=== PATIENT | male | born 1965 | race Caucasian/White ===

== ENCOUNTER 2025-02-20 11:34 | Emergency (ER) | payer BC ==
[2025-02-20 11:53] LABS: BLOOD UREA NITROGEN,BUN 23 mg/dL (7-18); CARBON DIOXIDE,CO2 25 mmol/L (21-32); CHLORIDE,CL 102 mmol/L (100-110); CREATININE 1.2 mg/dL (0.70-1.30); ESTIMATED GFR 69 mL/min (>60); GLUCOSE RANDOM 135 mg/dL (80-116); MEAN PLATELET VOLUME 8.1 fL (6.7-11.0); PLATELET COUNT,PLT 296 x10(3)uL (117-477); POTASSIUM,K 3.1 mmol/L (3.5-5.3); RED BLOOD CELL COUNT 5.21 x10(6)uL (3.90-5.90); RED CELL DISTRIBUTION WIDTH 13.0 % (12.4-15.0); SODIUM,NA 140 mmol/L (135-145); WHITE BLOOD CELL COUNT,WBC 16.8 x10-3/uL (3.2-10.1)
[2025-02-20 12:02] LABS: EOSINOPHILS PERCENT MAN 1 % (0-5); LYMPHOCYTES PERCENT MAN 28 % (13-37); MONOCYTES PERCENT MAN 11 % (4-12); SEG NEUTROPHILS PERCENT MAN 60 % (46-82)
[2025-02-20] MEDS: Diphtheria,Pertussis(Acell),Tetanus Vaccine 0.5 ML Syringe IM ONE (12:28)
[2025-02-20] MEDS: Ondansetron 4 MG/2 ML SDV IVPUSH PRN (12:35)
[2025-02-20] MEDS: HYDROmorphone 2 MG/ML SDV IVPUSH PRN (12:35)
[2025-02-20] MEDS: HYDROmorphone 2 MG/ML SDV IVPUSH ONE (13:15)
== END 2025-02-20 13:20 ==
LOC: FB.ED 11:34
DX: S92.325B Nondisplaced fracture of second metatarsal bone, left foot, initial encounter for open fracture (principal); S92.332B Displaced fracture of third metatarsal bone, left foot, initial encounter for open fracture; S92.342A Displaced fracture of fourth metatarsal bone, left foot, initial encounter for closed fracture; Z23 Encounter for immunization; W23.0XXA Caught, crushed, jammed, or pinched between moving objects, initial encounter; Y92.79 Other farm location as the place of occurrence of the external cause; Y93.89 Activity, other specified
CPT/HCPCS: 36415; 73590-26-LT; 73590-26-RT; 73590-LT; 73590-RT; 73630-26-LT; 73630-26-RT; 73630-LT; 73630-RT; 80048; 80307; 85025; 86850; 86900; 86901; 90471; 90715; 96361; 96374; 96375; 96376; 99284; 99284-25; J0696; J1171; J2270; J2405; J7030

== ENCOUNTER 2025-03-01 09:11 | Inpatient (IN) | payer BC ==
[2025-03-01] MEDS: FLU (Fluarix Triv) 25-26 (6MOS UP)/PF 45 MCG/0.5 ML Syringe IM ONE (15:37)
[2025-03-02] MEDS: Aspirin 325 MG Tab.EC PO SCH (09:01)
[2025-03-05] MEDS: Aspirin 325 MG Tab.EC PO SCH (09:08)
== END 2025-03-12 09:17 | disposition home health service (06) | DRG 861 ==
LOC: FB.MS 12:00
PROVIDERS: ADMIT Internal Medicine; ATTEND Family Medicine
DX: R53.81 Other malaise (principal); S82.91XA Unspecified fracture of right lower leg, initial encounter for closed fracture; S82.92XA Unspecified fracture of left lower leg, initial encounter for closed fracture; S92.321B Displaced fracture of second metatarsal bone, right foot, initial encounter for open fracture; Z88.0 Allergy status to penicillin; Z79.82 Long term (current) use of aspirin; Z79.899 Other long term (current) drug therapy; Z79.01 Long term (current) use of anticoagulants; Z98.890 Other specified postprocedural states
CPT/HCPCS: 36415; 85014; 85018; 97110-GO; 97110-GP; 97112-GP; 97116-GP; 97161-GP; 97165-GO; 97530-GO; 97530-GP; 97535-GO; 99305; 99308; 99315; A9270-GY